=== PATIENT | female | born 1940 | race Caucasian/White ===

== ENCOUNTER → 2017-05-16 | Outpatient (CLI) | payer MEDICARE ==
[~2017-05-16] MED LIST: FENOFIBRATE 54M54 MG PO; FLEXERIL10 MG PO; LEVOTHYROXINE0.05 M3 PO; MIRALAX17 GM/DOSE PO; MOTRIN 600MG.600 MG PO; PERCOCET 5/3251 EACH PO; PREDNISONE20 MG PO
[2017-05-16 14:13] LABS: HEMOGLOBIN 13.8 g/dL (12.2-16.2); LYMPH # 3.2 K/mm3 (0.7-4.5)
[2017-05-16 17:26] LABS: BUN 10 mg/dL (7-18)
[2017-05-16 20:11] LABS: GFR (ESTIMATED) 70 ML/MIN (59-)
[2017-05-17 09:38] LABS: Folate (Folic Acid) 10.4 ng/mL (>3.0); Vitamin B12 448 pg/mL (211-946)
[2017-05-17 18:36] LABS: Antinuclear Antibodies, IFA Positive (.)
== END ==
LOC: CARL-LAB 10:43
PROVIDERS: Specialist
DX: G44.329 Chronic post-traumatic headache, not intractable (principal); G89.29 Other chronic pain; M54.5 Low back pain; R47.89 Other speech disturbances